=== PATIENT | male | born 1970 | race Asian ===

== ENCOUNTER 2017-11-24 05:37 | Day surgery (SDC) | payer OTHER, SELFPAY ==
[2017-11-16 13:55] VITALS: BMI 30.7
[2017-11-24] VITALS (16 sets, daily range): BP systolic 101–134; BP diastolic 58–79; PULSE 71–98; RESP 9–17; TEMP 35.9–36.8; O2SAT 92–100; BMI 31.1
--- NOTE | 2017-11-24 | DI.RAD.S_ITS ---
PROCEDURE: XR KNEE RT 1TO2V INDICATIONS: ACL repair TECHNIQUE: 2 views of the knee were acquired. COMPARISON: None. FINDINGS: Bones: No fractures or dislocations. No suspicious bony lesions. Postsurgical changes related to ACL reconstruction. Hardware appears intact. There is expected alignment. Straight linear lucencies projecting the upper pole of patella and at the tibial tuberosity, postsurgical change Soft tissues: Joint effusion and postoperative soft tissue changes. IMPRESSION: Status post ACL reconstruction. Dictated by: Calvin Evans M.D. on 11/24/2017 at 13:55 Approved by: Calvin Evans M.D. on 11/24/2017 at 13:57
--- NOTE | 2017-11-24 07:24 | PM.PREOP ---
Pre-operative Note Interval Note Pre-op Check: Yes History & Physical Reviewed by Physician and Yes Exam Performed Changes: No
[2017-11-24] MEDS: LACTATED RINGERS 1,000 ML 42 ML IV ×2 (08:00→11:54)
[2017-11-24] MEDS: CEFAZOLIN 2 GM/100 ML FROZ.PIGGY IV (08:01)
--- NOTE | 2017-11-24 08:41 | SUR.OPER ---
Supine on padded OR bed, head on pillow, arms secured on padded arm boards at <90 degrees abduction, safety belt at waist, tape over blanket over lower left leg, right leg drapped free, lateral leg post right thigh.
[2017-11-24] MEDS: SODIUM CHLORIDE IRRIG SOLUTION 3,000 ML, EPINEPHrine 1 MG IRR (09:14)
[2017-11-24] MEDS: BUPIVACAINE 0.25% (PF) VIAL 30 ML INJ (09:14)
--- NOTE | 2017-11-24 12:44 | PM.OP.1 ---
Operative Date/Time/Diagnoses Date of procedure: 11/24/17 Time of procedure: 08:30 Pre-op diagnosis: Right knee ACL tear Right knee lateral meniscus root tear Right knee medial meniscus tear Post-op diagnosis: same Procedure & Clinicians Procedure: Right knee ACL reconstruction with patellar tendon autograft Right knee lateral meniscus root repair Right knee medial meniscus debridement Right knee medial femoral condyle chondroplasty Same procedure as scheduled: Yes Indications: 47-year-old male who sustained a right knee injury in July when he fell off a bale of hay. He had popped and instability at that time. He continued to have pain and instability with daily activities and is unable perform athletic activities at his desired level. Physical exam and imaging were consistent with the ACL tear and a lateral meniscus root tear. He also had a medial meniscus tear. There was no significant degenerative change seen on MRI. Risks, benefits, alternatives to surgery were discussed with the patient. Risks include pain, bleeding, infection, lack of symptom relief, implant complications, damage to nearby structures, cartilage damage, need for further surgeries, patella fracture, nonhealing of meniscus, DVT, PE, anesthetic complications. He signed a written consent form. Surgeon: Brannon Valdez Clothes Separator: Gurpreet Siddiqui Click Yes if Unassisted: No Anesthesia Type: General and Local Operative Notes Findings: Examination under anesthesia: Range of motion is 0-135 degrees. Stable to varus and valgus stressing at 0 and 30?. 2b Soumya's. Abnormal pivot shift. Negative posterior drawer. Negative dial at 30 and 90? Diagnostic arthroscopy: Patellofemoral joint showed grade 1 softening with focal grade 2 changes. Medial and lateral gutters were without loose bodies. The medial hemijoint showed a complex displaced and retracted medial meniscus tear involving all but the last few mm of the peripheral meniscus. The root piece had retracted and was in the posterior knee and the body piece had also retracted. These were debrided. The medial femoral condyle had a small focal fissure that was full thickness and the unstable edge was debrided. The medial tibial plateau had grade 1 softening. The notch showed a torn ACL. PCL was intact when probed. The lateral hemijoint showed grade 1 softening of the lateral femoral condyle and lateral tibial plateau. The lateral meniscus itself was intact but the root was completely torn. It was retracted somewhat posteriorly. He was reduced and fixed in place. Closure Type: primary Specimen(s): none sent Implants & Drains: Arthrex BTB tight rope Arthrex 9 x 25 mm tibial screw Arthrex SwiveLock Estimated Blood Loss (mL): 50 Tourniquet time (min): 125 Procedure in detail: The patient was met in the preoperative hold area the day of the procedure. The operative extremity signed. Consent was verified. He desired to proceed. He was brought to the operating room and surrendered to anesthesia. Once general anesthesia been obtained was placed in supine position all bony prominences well padded. Examination under anesthesia was performed and the findings can be found above. He was then prepped and draped in standard sterile fashion. Surgical time-out was held to confirm the patient procedure, identity, allergies, images, antibiotics. All were in agreement we proceeded An Esmarch was used to exsanguinate the limb and the tourniquet was elevated 250 mm of mercury. An incision was made just medial to midline from the inferior pole of the patella to the tibial tubercle. Sharp dissection was brought down to the paratenon and it was clear from overlying tissue. The paratenon was then split midline and cleared from the underlying tendon. I then measured the width of the tendon it was 33 mm. I marked out the central 10 mm and made full-thickness cut through the tendon from the inferior pole of the patella down to the tibial tubercle. I then measured at 25 mm on the patella side and 35 mm on the tibial side and outlined the bone block with the Bovie electrocautery. I then drilled 1 cm deep at the corners with a 2 0 drill bit. A sagittal saw was removed a triangular bone blocks from the patella and a trapezoidal bone block from the tibia. These were both delivered from the wound with a curved osteotome. I then took the graft to the back table and prepped it. The femoral bone block measured 23 mm by 9.5 and the tibial bone block measured 35 mm by 9.5. The excess bone was saved for later grafting. One hole was drilled into the femoral side and 2 and the tibial side. Through that incision I created a lateral arthroscopy portal and performed a diagnostic arthroscopy. The medial arthroscopy portal was created through the same incision and under direct visualization. Findings the diagnostic arthroscopy can be found above. I then proceeded to debride the medial meniscus with a combination of biters and sucker shaver. For the posterior horn fragment that was unstable I worked through the notch to debrided down to a stable base. I took final pictures of the medial meniscus debridement. I then took the sucker shaver and debrided the small cartilage defect on the medial femoral condyle back to stable base. I then transitioned to preparations for the ACL reconstruction and I debrided the notch of all remnant ACL tissue with a sucker shaver and a radiofrequency ablation Wand. I ensured to free the lateral wall the way to 12 o'clock in back and had excellent visualization. I then proceeded with the lateral meniscus root repair. A passport device was placed in the medial portal site. I used a sucker shaver to debride unstable portions from the lateral root. I then freed up the lateral root from the adhesions had formed with the capsule. I then identified the anatomic insertion just lateral to the PCL and off the articular margin. I used the Arthrex 6 mm flip cutter and placed it into the anatomic insertion site and started on the medial side of the tibia ensuring to stay out of the propose track of the ACL tunnel. I then flipped it and drilled back 5 mm into bone. I then utilized a curved curette and created a trough leading up to the tunnel taking all of the cartilage and fibrous tissue from the 1 cm adjacent to the tunnel in the course of the meniscus. The I also used a sucker shaver to debride the unstable cartilage pieces and then placed into a bur mode to bur the bone back in those locations to a bleeding bed. I then placed 2 0 fiber link sutures in a luggage tag fashion at the meniscal root with good separation and just off of the edge of the root tear. I used a knot pusher to get all the creep out of the system. I then passed the sutures through the tunnel using the passport to ensure there were no soft tissue bridges. I pulled on the sutures and noted the root was stable and well reduced. I took a picture inside the joint of the meniscus was pleased with the reduction. I placed a snap on these 2 sutures I then proceeded with ACL reconstruction and started by drilling the tibial tunnel. A pin was placed in the desired position 7 mm anterior to the PCL in line with the posterior aspect of the anterior horn lateral meniscus and on the lateral aspect of the medial tibial spine. I straighten the knee to ensure that there would be no notch impingement. The pin was then grabbed with a Gayle and overdrilled with a 10 mm drill. I then placed a fiber stick through this drill hole grasped it and placed it into the proposed femoral tunnel location. I clamped it and then at the anterior tibial cortex and measured the length of the tibial tunnel plus the intra-articular length. I used this to calculate a desired femoral tunnel of 33 mm to leave me with no graft tunnel mismatch. I then placed the femoral guide and set it to 120?. I marked location on the lateral thigh and made a 3 cm incision through the ITB band in line with its fibers. I then brought the bullet down through this incision under direct visualization and down to the wall. The femur then measured 42 mm and I planned on the 33 mm femoral tunnel. I then drilled the flip cutter into the joint flipped it and scored the lateral wall. The position was excellent and I had a 2 mm posterior wall and 2 mm off the distal articular surface. I then drilled my 33 mm femoral tunnel and removed the flip cutter from the joint. The fiber stick was then placed down into the joint and into the tibial tunnel. I then went to the back table and placed the necessary sutures on the tibial side of the graft and the BTB tight rope on the femoral side. I then brought the graft to the operative table passed the sutures with the button out the lateral skin. I grasped the bone block while in the notch and directed in line with the femoral tunnel and it passed nicely. I probed the aperture extensively ensured that there was no bone at that location. With tension on those sutures and then brought the button down to the lateral wall and tightened the the tight rope completely. I felt the button directly on the lateral wall. I then tied 6 half hitches alternating post over this. I then brought the leg onto the table placed a large bump under the distal thigh. Full tension was pulled on the tibial portion of the graft and a posterior drawer was placed. A Nitinol wire was placed and a 9 mm x 25 mm tibial screw was applied. The screw had excellent purchase in the graft. There was approximately 3 mm of excess tibial bone block that was trimmed off of the anterior tibial cortex with a rongeur. Soumya's 1A and pivot shift had been restored. I then pulled full tension on the root repair sutures he gave me a similar feel as though when I previously and had wall staring at. Using the camera I was unable to view it however since the ACL had been reconstructed. I was able to look in the joint and the lateral meniscus appeared to have a similar position as when I pulled on it previously. With full tension pulled I then drilled for the SwiveLock and placed a SwiveLock. Excellent purchase was obtained and the visible portion of the sutures were tight. I then irrigated all wounds copiously and I placed the excess bone autograft into the patella followed by demineralized bone matrix. I then placed demineralized bone matrix into the tibial defect as well. The paratenon was then closed with 0 Vicryl the deep tissues were closed with 2 O Vicryl the dermis was closed with 2 O Vicryl and the skin with a running Monocryl. The ITB band was closed laterally with 0 Vicryl with the dermis closed with 2 O Vicryl and running Monocryl in the skin laterally. 25 cc of 0.25% Marcaine plain were instilled about the wound. A sterile dressing was applied. With the patient asleep in the back table sterile a flat plate was taken showing excellent position of the graft and implants. A [id number] brace was applied the patient was awakened and transferred to the recovery room. Complications: none Condition: stable Disposition: same day surgery Plan for aftercare: Nonweightbearing 6 weeks Knee locked in full extension for 2 weeks Range of motion is 0-90 degrees until 6 weeks Weight-bearing with knee locked in full extension from 6 weeks to 12 weeks. Range of motion 0-120 until 12 weeks. Do not perform deep squats below 90? until 5 months
[2017-11-24] MEDS: ONDANSETRON 4 MG/2 ML INJ IV (13:20)
[2017-11-24] MEDS: METOCLOPRAMIDE 10 MG/2 ML INJ IV (13:21)
--- NOTE | 2017-11-24 13:56 | SUR.PHASEII ---
IVF now infused. Nausea less. VSS. Still mild diaphoresis. Patient opting to remain a bit longer before discharge.
[2017-11-24] MEDS: ePHEDrine 50 MG/ML VIAL 25 MG IM (15:33)
[2017-11-24] MEDS: SCOPOLAMINE 1 PATCH TOP (15:38)
--- NOTE | 2017-11-24 15:47 | SUR.PHASEII ---
Discussed PONV with Dr Freitas and both Ephedrine & Scopolomine given. Skin no longer mosit and VS. PONV occuring with movemnt/change of position.
--- NOTE | 2017-11-24 15:56 | SUR.PHASEII ---
VSS and able to sit up voicing no nausea altho some belching seen. Will try again in five minutes and if same response will discharge home. Still comfortable as regards to pain.
[2017-11-24] MEDS: LORazepam 2 MG/ML SYRINGE 0.25 MG IV (17:33)
--- NOTE | 2017-11-24 18:45 | SUR.PHASEII ---
Discharged at 1840 after being able to do activity without nausea and the ability to mobilize independently (with crutches). Pain controlled, VSS. Given time and decision to discharge made by patient. His , Crys was extremely supportive and patient throughout the extended stay due to PONV.
== END 2017-11-24 18:40 | disposition home or self-care (01) ==
PROVIDERS: Visit Provider Orthopaedic Surgery
PROC: (CPT 29888; principal; 2017-11-24 07:45)
PROC: (CPT 29870; 2017-11-24 07:45)
DX: S83.511A Sprain of anterior cruciate ligament of right knee, initial encounter (principal); S83.281A Other tear of lateral meniscus, current injury, right knee, initial encounter; S83.241A Other tear of medial meniscus, current injury, right knee, initial encounter; W17.89XA Other fall from one level to another, initial encounter
CPT/HCPCS: 29888; 29883; 73560; J0171; J0360; J0690; J1100; J1170; J2060; J2250; J2405; J2704; J2765; J3010

== ENCOUNTER 2019-04-26 13:23 | Day surgery (SDC) | payer OTHER, SELFPAY ==
[2019-04-26] MEDS: SODIUM CHLORIDE 0.9% 1,000 ML 200 ML IV (14:30)
[2019-04-26 14:43] VITALS: BMI 30.9
[2019-04-26 14:52] VITALS: BP 126/76; PULSE 79; RESP 16; TEMP 36.6; O2SAT 100
--- NOTE | 2019-04-26 15:14 | P.HP_ITS ---
History of Present Illness History of Present Illness Date Patient Seen: 04/26/19 Time Patient Seen: 15:15 Chief complaint: [id number] Narrative: Patient presents for colorectal screening. They have never had any previous examination for such. No personal or family history of colon cancer. On further history denies any recent gastrointestinal symptoms. No nausea, vomiting, abdominal pain, loss of appetite, unexplained weight loss, change in bowel habits, diarrhea, constipation, melena, hematochezia, or bright red blood per rectum. Patient History Medical History Elevated cholesterol (Acute) Right ACL tear (Acute) Sleep apnea (Acute) Wears glasses (Acute) Wears hearing aid in right ear (Acute) Surgical History History of vasectomy (Acute) [place] teeth extracted (Acute) Family & Social History Social History: household members spouse Tobacco & Substance use: Smoking Status Never smoker alcohol intake current alcohol intake frequency a few times a month Substance Use Type does not use Meds Home Medications and Allergies Home Medications Medication Instructions Recorded Confirmed Type simvastatin 10 mg PO QPM 11/16/17 04/26/19 History fexofenadine [June Allergy] 180 mg PO DAILY 11/24/17 04/26/19 History fluticasone propionate [Flonase 1 spray INTRANASAL DAILY 11/24/17 04/26/19 History Allergy Relief] Allergies Allergy/AdvReac Type Severity Reaction Status Date / Time fentanyl AdvReac Severe Vomiting Verified 04/26/19 15:02 ondansetron [From Zofran] AdvReac Severe Dizziness Verified 04/26/19 15:04 Review of Systems Review of Systems Narrative: A 10 point review of systems is negative except as noted in the HPI Exam Vital Signs (past 8 hours): - 04/26/19 14:52 Temperature 98 F Pulse Rate 79 Respiratory Rate 16 Blood Pressure 126/76 Pulse Oximetry 100 Oxygen Delivery Method Room Air Narrative Exam Narrative: General-no acute distress, well nourished HEENT-moist mucous membranes, no scleral icterus Neck-supple, no lymphadenopathy Chest- non labored respirations, clear to auscultation bilaterally Cardiac-regular rate no peripheral edema Abdomen-soft, nontender, non distended Extremities-warm, well perfused Neurological-alert and oriented, no focal deficits Assessment & Plan Assessment and plan (1) Screening for colon cancer: Current visit: Yes Status: Acute Assessment & Plan narrative: The patient requires colorectal screening and colonoscopy is recommended. Technical details were discussed. Risks, benefits, alternatives explained. Risks including but not limited to myocardial infarction, aspiration, bleeding, pain, missed lesion, incomplete examination, need for further radiographic studies, colonic perforation, and need for major abdominal surgery were discussed. All questions were answered to their sati sfaction, and they are in agreement with this plan.
[2019-04-26] MEDS: MIDAZOLAM 5 MG/5 ML VIAL IV (15:32)
--- NOTE | 2019-04-26 15:49 | PM.OP.ENDO ---
Operative Date/Time/Diagnoses Date of procedure: 04/26/19 Time of procedure: 15:49 Pre-op diagnosis: Screening colonoscopy Post-op diagnosis: same Procedure & Clinicians Study performed: Colonoscopy Same procedure as scheduled: Yes Indications: 49-year-old man no prior colonoscopy presents for routine screening Surgeon: Michele Griggs Procedure Notes SCOAP/Timeout: Performed Procedure in detail: Patient placed in left lateral decubitus position. Time out was performed. Procedural sedation was administered with Versed and Fentanyl. A rectal exam demonstrated no external hemorrhoids no internal masses. Colonoscopy scope was placed into the rectum and advanced through the colon to the cecum. The ileocecal valve was identified. The scope was then slowly withdrawn examining colon thoroughly in all directions. The colonoscopy was notable for the following 1. No masses or polyps 2. Sigmoid diverticulosis 3. Grade 1 internal hemorrhoids 4. Quality of prep excellent Scope withdrawal time: 6 Sedation minutes: 17 Findings: diverticulosis and internal hemorrhoids Specimen(s): none sent Complications: none Impression: Diverticulosis Post-procedure Recommendations: Colonscopy in 10 years Disposition: same day surgery
[2019-04-26 15:55] VITALS: BP 100/40; BP 116/63; PULSE 86; PULSE 90; RESP 11; TEMP 36.3; O2SAT 92; O2SAT 95
[2019-04-26 15:58] VITALS: BP 102/60; PULSE 83; RESP 19; O2SAT 95
[2019-04-26 16:03] VITALS: BP 101/59; PULSE 83; RESP 19; O2SAT 94
--- NOTE | 2019-04-26 16:05 | SUR.PHASEI ---
Report given to Jennifer
[2019-04-26 16:09] VITALS: BP 104/68; PULSE 82; RESP 11; O2SAT 100
[2019-04-26 16:31] VITALS: BP 112/79; PULSE 86; RESP 16; TEMP 36.1; O2SAT 95
== END 2019-04-26 16:50 | disposition home or self-care (01) ==
PROVIDERS: Visit Provider Surgery
PROC: 0DJD8ZZ Inspection of Lower Intestinal Tract, Via Natural or Artificial Opening Endoscopic (ICD-10-PCS; CPT 45378; principal; 2019-04-26 15:15)
DX: Z12.11 Encounter for screening for malignant neoplasm of colon (principal); G47.30 Sleep apnea, unspecified; E78.00 Pure hypercholesterolemia, unspecified; K57.30 Diverticulosis of large intestine without perforation or abscess without bleeding; K64.0 First degree hemorrhoids
CPT/HCPCS: 45378; 99152; J2250; J3010

== ENCOUNTER → 2020-05-12 08:27 | Outpatient (CLI) | payer OTHER, SELFPAY ==
[2020-05-12 09:18] LABS: Hemoglobin A1C% w Est Avg Glu 5.9 % (4.0-6.0)
[2020-05-12 09:19] LABS: Alanine Aminotransferase 38 IU/L (<50); Albumin 4.5 g/dL (3.5-5.0); Albumin Globulin Ratio 1.5 (1.0-2.8); BUN Creatinine Ratio 19.3 (6-22); Bilirubin Total 0.5 mg/dL (0.2-1.3); Blood Urea Nitrogen 21 mg/dL (9-20); Carbon Dioxide 27 mmol/L (22-32); Chloride 107 mmol/L (98-107); Cholesterol 169 mg/dL (140-199); Estimated Glomerular Filt Rate > 60.0 mL/min (>60); Globulin 3.1 g/dL (1.7-4.1); Glucose 102 mg/dL (70-100); HDL Cholesterol 50 mg/dL (40-60); LDL Cholesterol Calculated 86 mg/dL (<100); Sodium 139 mmol/L (137-145); Total Protein 7.6 g/dL (6.3-8.2); Triglycerides 166 mg/dL (35-150)
[2020-05-12 09:32] LABS: Alkaline Phosphatase 55 U/L (38-126); Aspartate Aminotransferase 31 IU/L (17-59); HEMOLYSIS 60 (0-50); Potassium 4.5 mmol/L (3.4-5.1)
== END ==
PROVIDERS: PCP Family Medicine; Referring Provider Family Medicine; Visit Provider Family Medicine
DX: Z00.01 Encounter for general adult medical examination with abnormal findings (principal); E78.00 Pure hypercholesterolemia, unspecified
CPT/HCPCS: 36415; 80053; 80061; 83036

== ENCOUNTER → 2021-10-31 09:30 | Outpatient (CLI) | payer OTHER, SELFPAY ==
[2021-10-31 11:31] LABS: Alanine Aminotransferase 38 IU/L (<50); Albumin 4.8 g/dL (3.5-5.0); Albumin Globulin Ratio 1.7 (1.0-2.8); Alkaline Phosphatase 42 U/L (38-126); Aspartate Aminotransferase 41 IU/L (17-59); Bilirubin Total 1.1 mg/dL (0.2-1.3); Blood Urea Nitrogen 14 mg/dL (9-20); Carbon Dioxide 24 mmol/L (22-32); Chloride 108 mmol/L (98-107); Cholesterol 163 mg/dL (140-199); Estimated Glomerular Filt Rate > 60 mL/min (>60); Globulin 2.9 g/dL (1.7-4.1); Glucose 95 mg/dL (70-100); HDL Cholesterol 47 mg/dL (40-60); LDL Cholesterol Calculated 74 mg/dL (<100); Sodium 140 mmol/L (137-145); Total Protein 7.7 g/dL (6.3-8.2); Triglycerides 208 mg/dL (35-150)
[2021-10-31 11:35] LABS: Hemoglobin A1C% w Est Avg Glu 5.9 % (4.0-6.0)
[2021-10-31 11:55] LABS: HEMOLYSIS 163 (0-50)
== END ==
PROVIDERS: PCP Family Medicine; Referring Provider Family Medicine; Visit Provider Family Medicine
DX: E78.00 Pure hypercholesterolemia, unspecified (principal); G47.33 Obstructive sleep apnea (adult) (pediatric); Z00.01 Encounter for general adult medical examination with abnormal findings
CPT/HCPCS: 36415; 80053; 80061; 83036

== ENCOUNTER → 2022-09-24 07:57 | Outpatient (CLI) | payer BC, OTHER, SELFPAY ==
[2022-09-24 09:11] LABS: Add Manual Diff / Slide Review NO; Basophils Absolute Auto 0 /uL (0-100); Basophils Percent Auto 0.7 % (0-2); Eosinophils Absolute Auto 300 /uL (0-450); Eosinophils Percent Auto 5.7 % (2-4); Hematocrit 43.9 % (41-53); Hemoglobin 14.9 g/dL (13.5-17.5); Lymphocytes Absolute Auto 1800 /uL (1100-4500); Lymphocytes Percent Auto 30.6 % (25-40); Mean Corpuscular HGB Conc 33.8 % (30-36); Mean Corpuscular Hemoglobin 29.7 PG (26-34); Mean Corpuscular Volume 87.9 fL (80-100); Monocytes Absolute Auto 400 /uL (0-900); Monocytes Percent Auto 7.6 % (3-14); Neutrophils Absolute Auto 3200 /uL (1500-7000); Neutrophils Percent Auto 55.4 % (50-75); Platelet Count 220 X10^3/uL (150-400); Red Cell Distribution Width 13.8 % (11.6-14.8); White Blood Cell Count 5.8 X10^3/uL (4.5-11.0)
[2022-09-24 09:30] LABS: Alanine Aminotransferase 52 IU/L (<50); Albumin 4.5 g/dL (3.5-5.0); Albumin Globulin Ratio 1.7 (1.0-2.8); Alkaline Phosphatase 64 U/L (38-126); Aspartate Aminotransferase 32 IU/L (17-59); BUN Creatinine Ratio 15.3 (6-22); Bilirubin Total 0.5 mg/dL (0.2-1.3); Blood Urea Nitrogen 18 mg/dL (9-20); Carbon Dioxide 28 mmol/L (22-32); Chloride 105 mmol/L (98-107); Cholesterol 173 mg/dL (140-199); Estimated Glomerular Filt Rate > 60 mL/min (>60); Globulin 2.6 g/dL (1.7-4.1); Glucose 102 mg/dL (70-100); HDL Cholesterol 51 mg/dL (40-60); HEMOLYSIS < 15 (0-50); LDL Cholesterol Calculated 76 mg/dL (<100); Potassium 4.5 mmol/L (3.4-5.1); Sodium 140 mmol/L (137-145); Total Protein 7.1 g/dL (6.3-8.2); Triglycerides 229 mg/dL (35-150)
[2022-09-24 10:01] LABS: Prostate Specific Antigen Scrn 0.603 ng/mL (0.1-4.0)
[2022-09-24 10:02] LABS: TSH w/ Reflex to FT4 2.38 uIU/mL (0.47-4.68)
[2022-09-24 10:20] LABS: Hep C Virus Ab w/Reflex Quant NEGATIVE s/c (NEGATIVE)
== END ==
PROVIDERS: PCP Family Medicine; Referring Provider Family Medicine; Visit Provider Family Medicine
DX: E78.00 Pure hypercholesterolemia, unspecified (principal); G47.30 Sleep apnea, unspecified; L30.9 Dermatitis, unspecified; M72.2 Plantar fascial fibromatosis; Z00.01 Encounter for general adult medical examination with abnormal findings; Z12.5 Encounter for screening for malignant neoplasm of prostate
CPT/HCPCS: 36415; 80053; 80061; 84443; 85025; 86803; G0103

== ENCOUNTER → 2023-10-01 08:13 | Outpatient (CLI) | payer OTHER, SELFPAY ==
[2023-10-01 09:00] LABS: Add Manual Diff / Slide Review NO; Basophils Absolute Auto 0 /uL (0-100); Basophils Percent Auto 0.6 % (0-2); Eosinophils Absolute Auto 300 /uL (0-450); Eosinophils Percent Auto 5.9 % (2-4); Hematocrit 42.5 % (41-53); Hemoglobin 14.3 g/dL (13.5-17.5); Lymphocytes Absolute Auto 1400 /uL (1100-4500); Mean Corpuscular HGB Conc 33.6 % (30-36); Mean Corpuscular Hemoglobin 29.8 PG (26-34); Mean Corpuscular Volume 88.8 fL (80-100); Monocytes Absolute Auto 400 /uL (0-900); Monocytes Percent Auto 6.6 % (3-14); Neutrophils Absolute Auto 3700 /uL (1500-7000); Neutrophils Percent Auto 62.9 % (50-75); Platelet Count 219 X10^3/uL (150-400); Red Blood Cell Count 4.79 X10^6/uL (4.5-5.9); Red Cell Distribution Width 13.9 % (11.6-14.8); White Blood Cell Count 5.8 X10^3/uL (4.5-11.0)
[2023-10-01 09:07] LABS: Hemoglobin A1C% w Est Avg Glu 5.9 % (4.0-6.0)
[2023-10-01 09:17] LABS: Alanine Aminotransferase 41 IU/L (<50); Albumin 4.5 g/dL (3.5-5.0); Albumin Globulin Ratio 1.9 (1.0-2.8); Alkaline Phosphatase 58 U/L (38-126); Aspartate Aminotransferase 35 IU/L (17-59); BUN Creatinine Ratio 19.2 (6-22); Bilirubin Total 0.9 mg/dL (0.2-1.3); Blood Urea Nitrogen 19 mg/dL (9-20); Calcium 9.2 mg/dL (8.4-10.2); Carbon Dioxide 25 mmol/L (22-32); Chloride 109 mmol/L (98-107); Cholesterol 156 mg/dL (140-199); Estimated Glomerular Filt Rate > 60 mL/min (>60); Globulin 2.4 g/dL (1.7-4.1); Glucose 111 mg/dL (70-100); HDL Cholesterol 48 mg/dL (40-60); HEMOLYSIS < 15 (0-50); LDL Cholesterol Calculated 69 mg/dL (<100); Potassium 4.2 mmol/L (3.4-5.1); Sodium 140 mmol/L (137-145); Total Protein 6.9 g/dL (6.3-8.2); Triglycerides 197 mg/dL (35-150)
[2023-10-01 09:48] LABS: Prostate Specific Antigen Scrn 0.772 ng/mL (0.1-4.0); TSH w/ Reflex to FT4 1.25 uIU/mL (0.47-4.68)
[2023-10-02 08:39] LABS: Apolipoprotein B 74 mg/dL (<90)
[2023-10-05 03:10] LABS: Lipoprotein (a) 82.1 nmol/L (<75.0)
== END ==
PROVIDERS: PCP Family Medicine; Referring Provider Family Medicine; Visit Provider Family Medicine
DX: Z00.00 Encounter for general adult medical examination without abnormal findings (principal); R73.01 Impaired fasting glucose; Z12.5 Encounter for screening for malignant neoplasm of prostate
CPT/HCPCS: 36415; 80053; 80061; 82172; 83036; 83695; 84443; 85025; G0103

== ENCOUNTER 2023-10-20 11:30 | Emergency (ER) | payer OTHER, SELFPAY ==
[2023-10-20] VITALS (11 sets, daily range): BP systolic 104–157; BP diastolic 57–69; PULSE 70–78; RESP 14–16; TEMP 37; O2SAT 96–100; BMI 32.9
--- NOTE | 2023-10-20 12:29 | PC.NURSE ---
patient states that he suddenly got sick today at work and began vomiting. he was dizzy and laid down and that helped his nausea go away. He doesn't say that he ate anything out of the usual. He denies chest pain, SOB. He has stopped vomiting here in the ER today. Provider in room assessing the patient.
--- NOTE | 2023-10-20 12:42 | ED_ITS ---
HPI - Dizziness General Chief Complaint: Dizziness Stated Complaint: vomiting, dizziness, weakness Time Seen by Provider: 10/20/23 11:37 Mode of arrival: Family Vehicle History of Present Illness HPI Narrative: 53-year-old male presents for evaluation of dizziness and vomiting. Patient states that he was at work when all of a sudden the room began to spin and he vomited several times. He states that when he lays down he feels improved, but any time he sits upright he gets very vertiginous and nauseous. States that a similar episode happened a couple of months ago, but resolved with sleep and rest. Denies any other complaints at this time Related Data Home Medications Medication Instructions Recorded Confirmed simvastatin 10 mg tablet 10 mg PO QPM 11/16/17 10/14/23 fexofenadine 180 mg tablet 180 mg PO DAILY 11/24/17 10/14/23 (June Allergy) fluticasone propionate 50 1 spray intranasal DAILY 11/24/17 10/14/23 mcg/actuation nasal spray,suspension (Flonase Allergy Relief) Previous Rx's Medication Instructions Recorded triamcinolone acetonide 0.1 % 1 applic topical BID #30 grams 10/14/23 topical cream meclizine 25 mg tablet 25 mg PO BID-TID #30 tabs 10/20/23 promethazine 25 mg tablet 25 mg PO Q6H PRN nausea and 10/20/23 vomiting #30 tabs Allergies Allergy/AdvReac Type Severity Reaction Status Date / Time fentanyl AdvReac Severe Vomiting Verified 10/20/23 11:44 ondansetron [From Zofran] AdvReac Severe Dizziness Verified 10/20/23 11:44 Patient History Medical History Bilateral plantar fasciitis Dry skin Right ACL tear Wears hearing aid in right ear Wears glasses Sleep apnea Elevated cholesterol Surgical History History of repair of anterior cruciate ligament of right knee History of vasectomy [place] teeth extracted Family History Father Hyperlipidemia Hypertension Social History household members: spouse Smoking Status: Never smoker alcohol intake: current Smoking Status: Never smoker alcohol intake frequency: a few times a month Substance Use Type: does not use Exam Initial Vital Signs Initial Vital Signs: Vital Signs Pulse Oximetry 99 10/20/23 11:36 Const: Awake, alert, eyes closed, appears uncomfortable Cardiac: regular rate, regular rhythm RESP: unlabored, clear bilaterally, no wheezing GI: Soft, nontender, nondistended Skin: Warm, Dry, intact, no rashes Neuro: AO x3, CN II-XII grossly intact, moves all extremities, vertigo when sitting upright Course Orders Ordered: Discontinued Medications Diazepam (Diazepam 10 Mg/2 Ml Syringe) 2 mg IV NOW ONE Stop: 10/20/23 12:34 Last Admin: 10/20/23 12:49 Dose: 2 mg Documented By: SIMI Sodium Chloride (Normal Saline 0.9%) 1,000 mls @ 1,000 mls/hr IV BOLUS ONE Stop: 10/20/23 13:32 Last Infusion: 10/20/23 13:40 Dose: Infused Documented By: Admin: 10/20/23 12:48 Dose: 1,000 mls/hr Documented By: SIMI Meclizine HCl (Meclizine Hcl 12.5 Mg Tablet) 50 mg PO NOW ONE Stop: 10/20/23 15:17 Last Admin: 10/20/23 15:19 Dose: 50 mg Documented By: SIMI Metoclopramide HCl (Metoclopramide 10 Mg/2 Ml Inj) 10 mg IV NOW ONE Stop: 10/20/23 14:20 Last Admin: 10/20/23 14:24 Dose: 10 mg Documented By: SIMI Vital Signs Vital signs: Vital Signs - 8 hr 10/20/23 11:36 10/20/23 11:37 10/20/23 11:37 Temperature Pulse Rate 77 Respiratory Rate Blood Pressure 157/65 H Pulse Oximetry 99 99 Oxygen Delivery Method 10/20/23 11:38 10/20/23 12:00 10/20/23 12:30 Temperature 98.6 F Pulse Rate 74 77 77 Respiratory Rate 16 Blood Pressure 157/65 H Pulse Oximetry 99 100 99 Oxygen Delivery Method Room Air 10/20/23 12:53 10/20/23 12:53 10/20/23 13:00 Temperature Pulse Rate 70 74 Respiratory Rate Blood Pressure 117/57 L Pulse Oximetry 100 96 Oxygen Delivery Method 10/20/23 13:00 10/20/23 13:30 10/20/23 13:30 Temperature Pulse Rate 75 Respiratory Rate Blood Pressure 113/59 L 104/57 L Pulse Oximetry 98 Oxygen Delivery Method 10/20/23 14:00 10/20/23 14:00 10/20/23 14:31 Temperature Pulse Rate 75 78 Respiratory Rate Blood Pressure 116/66 109/60 Pulse Oximetry 99 99 Oxygen Delivery Method MDM - Dizziness Differential Diagnosis Differential diagnosis: Likely adverse reaction to drug, benign paroxysmal positional vertigo and orthostatic hypotension Lab Data 10/20/23 12:00 10/20/23 12:00 Labs: Lab Results 10/20/23 Range/Units 12:00 WBC 10.0 (4.5-11.0) X10^3/uL RBC 4.75 (4.5-5.9) X10^6/uL Hgb 14.3 (13.5-17.5) g/dL Hct 42.0 (41-53) % MCV 88.3 (80-100) fL MCH 30.1 (26-34) PG MCHC 34.1 (30-36) % RDW 13.9 (11.6-14.8) % Plt Count 212 (150-400) X10^3/uL Neut % (Auto) 86.1 H (50-75) % Lymph % (Auto) 9.0 L (25-40) % [place] % (Auto) 3.7 (3-14) % Eos % (Auto) 0.9 L (2-4) % Baso % (Auto) 0.3 (0-2) % Neut # (Auto) 8600 H (3623-7761) /uL Lymph # (Auto) 900 L (3816-7242) /uL [place] # (Auto) 400 (0-900) /uL Eos # (Auto) 100 (0-450) /uL Baso # (Auto) 0 (0-100) /uL Sodium 140 (137-145) mmol/L Potassium 4.2 (3.4-5.1) mmol/L Chloride 106 (98-107) mmol/L Carbon Dioxide 24 (22-32) mmol/L BUN 14 (9-20) mg/dL Creatinine 1.09 (0.66-1.25) mg/dL Estimated GFR > 60 (>60) mL/min BUN/Creatinine Ratio 12.8 (6-22) Glucose 124 H (70-100) mg/dL Calcium 9.1 (8.4-10.2) mg/dL Total Bilirubin 0.9 (0.2-1.3) mg/dL AST 41 (17-59) IU/L ALT 39 (<50) IU/L Alkaline Phosphatase 56 (38-126) U/L Total Protein 7.4 (6.3-8.2) g/dL Albumin 4.7 (3.5-5.0) g/dL Globulin 2.7 (1.7-4.1) g/dL Albumin/Globulin Ratio 1.7 (1.0-2.8) Lipase 96 (23-300) U/L Imaging Data CT scan - head: Radiologist's Impression: PROCEDURE: CT HEAD/BRAIN WO CON INDICATIONS: severe vertigo TECHNIQUE: Noncontrast 4.5 mm thick angled axial sections acquired from the foramen magnum to the vertex, with coronal and sagittal reformats. For radiation dose reduction, the following was used: automated exposure control, adjustment of mA and/or kV according to patient size. COMPARISON: None. FINDINGS: Image quality: Diagnostic. CSF spaces: Basal cisterns are patent. No extra-axial fluid collections. Ventricles are normal in size and shape. Brain: No midline shift. No intracranial masses or hemorrhage. [place]-white matter interface is normal. Skull and face: Calvarium and visualized facial bones are intact, without suspicious lesions. Sinuses: Visualized sinuses and mastoids are clear. IMPRESSION: No acute intracranial pathology. Dictated by: Wang Watson M.D. on 10/20/2023 at 15:00 Approved by: Wang Watson M.D. on 10/20/2023 at 15:00 CTA - brain/neck: Radiologist's Impression: PROCEDURE: CT ANGIO HEAD AND NECK INDICATIONS: severe vertigo TECHNIQUE: After the administration of intravenous contrast, 1 mm thick sections acquired from the aortic arch through the [place] of [place]. 3-dimensional jtxzghn-sshtoggdo-wvvsnbenbu (MIP) and/or volume rendering reformats were acquired of the central intracranial vasculature and neck separately. For radiation dose reduction, the following was used: automated exposure control, adjustment of mA and/or kV according to patient size. COMPARISON: [facility], CT, CT HEAD/BRAIN WO CON, 10/20/2023, 14:22. FINDINGS: Image quality: Diagnostic. BRAIN: CSF spaces: Ventricles are normal in size and shape. Basal cisterns are patent. No extra-axial fluid collections. Brain: No significant abnormality of the brain can be seen. Skull and face: Calvarium and facial bones appear intact, without suspicious lesions. Orbits appear normal. Sinuses: Sinuses and mastoids are clear. HEAD CT ANGIOGRAPHY: Anterior circulation: Intracranial internal carotid arteries are normal in size and flow. The flow within the paired anterior cerebral arteries is normal and symmetric. The flow within the middle cerebral arteries is normal and symmetric. The anterior communicating artery is seen. No aneurysms are seen. Posterior circulation: Visualized portions of the vertebral arteries demonstrate normal caliber, and join to form a normal appearing basilar artery. Flow within the posterior cerebral arteries is normal and symmetric. No aneurysms are seen. NECK CT ANGIOGRAPHY: Carotid system: The great vessels demonstrate a conventional anatomy as they arise from the aortic arch. The origins of the common carotid arteries appear patent. The common carotid arteries demonstrate normal caliber and courses. The bifurcation regions are both widely patent. The internal carotid arteries demonstrate normal calibers and courses. Posterior circulation: The origins of the vertebral arteries both appear widely patent. The more superior extracranial portions of both vertebral arteries also demonstrate normal courses and calibers. They join to form a normal appearing basilar artery. Soft tissues: Visualized neck soft tissues demonstrate no suspicious abnormalities. Bones: No suspicious bony lesions. Visualized cervical spine appears normally aligned. IMPRESSION: No significant intracranial arterial abnormality is seen. No significant abnormality is seen within the arteries of the neck. Any quantitative measurements of stenosis were performed using NASCET criteria. Dictated by: Wang Watson M.D. on 10/20/2023 at 14:57 Approved by: Wang Watson M.D. on 10/20/2023 at 14:59 MDM Narrative Medical decision making narrative: Sudden onset vertigo and associated nausea and vomiting. Onset and description of symptoms seems more peripheral in nature. Laboratory work, IV fluids, Valium ordered for nausea and vertigo. Laboratory work unremarkable. Patient reported feeling somewhat improved after Valium, still with some vertigo. CT and CT angio head and neck ordered for assessment. Patient reports adverse reaction to Zofran, different nausea medication ordered. Meclizine also ordered. Noncontrast CT brain and CT angio negative for acute findings. Patient reported feeling improved after meclizine. Family relieved to know of normal CT results. Meclizine and antinausea medication sent to pharmacy of choice. If patient has persistent vertigo he was referred to an ENT doctor for evaluation. PCP follow up advised. Discharge Plan Departure Patient Disposition: Home Clinical Impression: Vertigo Instructions: DI for Vertigo Activity Restrictions/Additional Instructions: your CT and CT angio imaging was normal. There do not appear to be any blockages in any of the arteries of your head and neck. Your laboratory work here today was normal as well. Meclizine has been sent to your pharmacy for vertigo, and Phenergan has been sent as well for nausea and vomiting. I recommend following up with the ear nose and throat doctor if you continue to experience vertigo symptoms, a referral has been provided below. If your symptoms worsen, are not improved with the medications provided, or if you are unable to tolerate anything by mouth please return for repeat evaluation. Prescriptions: New meclizine 25 mg tablet 25 mg PO BID-TID Qty: 30 0RF promethazine 25 mg tablet 25 mg PO Q6H PRN (Reason: nausea and vomiting) Qty: 30 0RF No Action triamcinolone acetonide 0.1 % cream 1 applic topical BID Qty: 30 0RF Rx Instructions: apply thin layer to affected area of arms twice each day for up to two weeks at a time. simvastatin 10 mg Tablet 10 mg PO QPM fexofenadine [June Allergy] 180 mg Tablet 180 mg PO DAILY fluticasone propionate [Flonase Allergy Relief] 50 mcg/actuation [place],Suspension 1 spray INTRANASAL DAILY Referrals: Marvin Isabel MD [Physician] - Maikel Palafox MD [Primary Care Provider] - Stand Alone Forms: Patient Portal/API, Work Release Note
[2023-10-20 12:45] LABS: Add Manual Diff / Slide Review NO; Basophils Absolute Auto 0 /uL (0-100); Basophils Percent Auto 0.3 % (0-2); Eosinophils Absolute Auto 100 /uL (0-450); Eosinophils Percent Auto 0.9 % (2-4); Hemoglobin 14.3 g/dL (13.5-17.5); Lymphocytes Absolute Auto 900 /uL (1100-4500); Mean Corpuscular HGB Conc 34.1 % (30-36); Mean Corpuscular Hemoglobin 30.1 PG (26-34); Mean Corpuscular Volume 88.3 fL (80-100); Monocytes Absolute Auto 400 /uL (0-900); Monocytes Percent Auto 3.7 % (3-14); Neutrophils Absolute Auto 8600 /uL (1500-7000); Neutrophils Percent Auto 86.1 % (50-75); Platelet Count 212 X10^3/uL (150-400); Red Blood Cell Count 4.75 X10^6/uL (4.5-5.9); Red Cell Distribution Width 13.9 % (11.6-14.8)
[2023-10-20] MEDS: SODIUM CHLORIDE 0.9% 1,000 ML 1000 ML IV (12:48)
[2023-10-20] MEDS: diazePAM 10 MG/2 ML SYRINGE 2 MG IV (12:49)
[2023-10-20 12:51] LABS: Alanine Aminotransferase 39 IU/L (<50); Albumin 4.7 g/dL (3.5-5.0); Albumin Globulin Ratio 1.7 (1.0-2.8); Alkaline Phosphatase 56 U/L (38-126); Aspartate Aminotransferase 41 IU/L (17-59); BUN Creatinine Ratio 12.8 (6-22); Bilirubin Total 0.9 mg/dL (0.2-1.3); Blood Urea Nitrogen 14 mg/dL (9-20); Calcium 9.1 mg/dL (8.4-10.2); Carbon Dioxide 24 mmol/L (22-32); Chloride 106 mmol/L (98-107); Estimated Glomerular Filt Rate > 60 mL/min (>60); Globulin 2.7 g/dL (1.7-4.1); Glucose 124 mg/dL (70-100); HEMOLYSIS 39 (0-50); Lipase 96 U/L (23-300); Potassium 4.2 mmol/L (3.4-5.1); Sodium 140 mmol/L (137-145); Total Protein 7.4 g/dL (6.3-8.2)
--- NOTE | 2023-10-20 14:16 | DI.CT.S_ITS ---
PROCEDURE: CT HEAD/BRAIN WO CON INDICATIONS: severe vertigo TECHNIQUE: Noncontrast 4.5 mm thick angled axial sections acquired from the foramen magnum to the vertex, with coronal and sagittal reformats. For radiation dose reduction, the following was used: automated exposure control, adjustment of mA and/or kV according to patient size. COMPARISON: None. FINDINGS: Image quality: Diagnostic. CSF spaces: Basal cisterns are patent. No extra-axial fluid collections. Ventricles are normal in size and shape. Brain: No midline shift. No intracranial masses or hemorrhage. [place]-white matter interface is normal. Skull and face: Calvarium and visualized facial bones are intact, without suspicious lesions. Sinuses: Visualized sinuses and mastoids are clear. IMPRESSION: No acute intracranial pathology. Dictated by: Wang Watson M.D. on 10/20/2023 at 15:00 Approved by: Wang Watson M.D. on 10/20/2023 at 15:00
--- NOTE | 2023-10-20 14:16 | DI.CT.S_ITS ---
PROCEDURE: CT ANGIO HEAD AND NECK INDICATIONS: severe vertigo TECHNIQUE: After the administration of intravenous contrast, 1 mm thick sections acquired from the aortic arch through the [place] of [place]. 3-dimensional geaobcx-mstcnccek-evuwcarwst (MIP) and/or volume rendering reformats were acquired of the central intracranial vasculature and neck separately. For radiation dose reduction, the following was used: automated exposure control, adjustment of mA and/or kV according to patient size. COMPARISON: [facility], CT, CT HEAD/BRAIN WO CON, 10/20/2023, 14:22. FINDINGS: Image quality: Diagnostic. BRAIN: CSF spaces: Ventricles are normal in size and shape. Basal cisterns are patent. No extra-axial fluid collections. Brain: No significant abnormality of the brain can be seen. Skull and face: Calvarium and facial bones appear intact, without suspicious lesions. Orbits appear normal. Sinuses: Sinuses and mastoids are clear. HEAD CT ANGIOGRAPHY: Anterior circulation: Intracranial internal carotid arteries are normal in size and flow. The flow within the paired anterior cerebral arteries is normal and symmetric. The flow within the middle cerebral arteries is normal and symmetric. The anterior communicating artery is seen. No aneurysms are seen. Posterior circulation: Visualized portions of the vertebral arteries demonstrate normal caliber, and join to form a normal appearing basilar artery. Flow within the posterior cerebral arteries is normal and symmetric. No aneurysms are seen. NECK CT ANGIOGRAPHY: Carotid system: The great vessels demonstrate a conventional anatomy as they arise from the aortic arch. The origins of the common carotid arteries appear patent. The common carotid arteries demonstrate normal caliber and courses. The bifurcation regions are both widely patent. The internal carotid arteries demonstrate normal calibers and courses. Posterior circulation: The origins of the vertebral arteries both appear widely patent. The more superior extracranial portions of both vertebral arteries also demonstrate normal courses and calibers. They join to form a normal appearing basilar artery. Soft tissues: Visualized neck soft tissues demonstrate no suspicious abnormalities. Bones: No suspicious bony lesions. Visualized cervical spine appears normally aligned. IMPRESSION: No significant intracranial arterial abnormality is seen. No significant abnormality is seen within the arteries of the neck. Any quantitative measurements of stenosis were performed using NASCET criteria. Dictated by: Wang Watson M.D. on 10/20/2023 at 14:57 Approved by: Wang Watson M.D. on 10/20/2023 at 14:59
[2023-10-20] MEDS: METOCLOPRAMIDE 10 MG/2 ML INJ IV (14:24)
[2023-10-20] MEDS: MECLIZINE HCL 12.5 MG TABLET 50 MG PO (15:19)
--- NOTE | 2023-10-20 16:34 | PC.NURSE ---
patient ambulated to the restroom. He is still slightly dizzy but able to ambulated without nausea and vomiting.
== END 2023-10-20 17:04 | disposition home or self-care (01) ==
PROVIDERS: Emergency Provider Emergency Medicine; PCP Family Medicine
DX: R42 Dizziness and giddiness (principal); R11.2 Nausea with vomiting, unspecified
CPT/HCPCS: 36415; 70450; 70496; 70498; 80053; 83690; 85025; 96361; 96374; 96375; 99284; J2765; J3360; Q9967

== ENCOUNTER → 2023-10-22 07:54 | Outpatient (CLI) | payer OTHER, SELFPAY ==
[2023-10-25 17:08] LABS: Deamidated Gliadin Ab IgA 3 units (0-19); Deamidated Gliadin Ab IgG 2 units (0-19); Immunoglobulin A,Qn 150 mg/dL (90-386); t-Transglutaminase IgA <2 U/mL (0-3)
[2023-10-28 22:36] LABS: Percent Free Testosterone 2.33 % (1.50-4.20); Testosterone Free 9.33 ng/dL (5.00-21.00); Testosterone Total 400.5 ng/dL (264.0-916.0)
== END ==
PROVIDERS: PCP Family Medicine; Referring Provider Family Medicine; Visit Provider Family Medicine
DX: R68.82 Decreased libido (principal); R53.83 Other fatigue; K90.41 Non-celiac gluten sensitivity
CPT/HCPCS: 36415; 82784; 83516; 84402; 84403

== ENCOUNTER → 2024-02-27 15:18 | Outpatient (CLI) | payer OTHER, SELFPAY ==
--- NOTE | 2024-02-27 15:19 | DI.MRI.S_ITS ---
PROCEDURE: MR BRAIN (IAC) WWO CON INDICATIONS: RECURRENT VERTIGO, HEARING LOSS TECHNIQUE: Noncontrast sagittal T1 spin echo, axial FLAIR, axial gradient echo, axial diffusion and ADC through the brain. Axial thin-slice 3D CISS, coronal TruFISP, axial T1 spin echo with fat saturation through the internal auditory canals. After the administration of contrast, thin slice axial and coronal T1 spin echo with fat saturation through the internal auditory canals, and axial and coronal and sagittal T1 spin echo with fat saturation through the brain. COMPARISON: [facility], CT, CT HEAD/BRAIN WO CON, 10/20/2023, 14:22. [facility], CT, CT ANGIO HEAD AND NECK, 10/20/2023, 14:22. FINDINGS: Image quality: Excellent. Cerebellopontine angles: No cerebellopontine angle masses. Inner ear structures appear normally formed. No suspicious enhancement in the internal auditory canal or along the course of the 7th cranial nerve. CSF spaces: Ventricles are normal in size and shape. No extra-axial fluid collections. Basal cisterns are patent. Brain: No intracranial bleeds or mass effects. [place]-white matter interface is intact. No abnormal intracranial enhancement. Diffusion weighted images demonstrate no acute ischemic insults. Brainstem appears normal. Normal intravascular flow voids are present. Skull and face: Calvarial marrow signal is normal. Orbits appear normal. Sinuses: Sinuses and mastoids are clear. IMPRESSION: No significant abnormality is seen. Specifically, no masses or abnormal enhancement are seen within the cerebellopontine angle cisterns or within the internal auditory canals. Dictated by: Josafat Russell M.D. on 02/27/2024 at 16:08 Approved by: Josafat Russell M.D. on 02/27/2024 at 16:10
== END ==
PROVIDERS: PCP Family Medicine; Referring Provider Otolaryngology; Visit Provider Otolaryngology
DX: H90.41 Sensorineural hearing loss, unilateral, right ear, with unrestricted hearing on the contralateral side (principal); R42 Dizziness and giddiness
CPT/HCPCS: 70553; A9579

== ENCOUNTER → 2024-10-09 08:09 | Outpatient (CLI) | payer OTHER, SELFPAY ==
[2024-10-09 08:59] LABS: Hematocrit 46.6 % (41-53); Hemoglobin 15.6 g/dL (13.5-17.5); Mean Corpuscular HGB Conc 33.6 % (30-36); Mean Corpuscular Hemoglobin 29.6 PG (26-34); Mean Corpuscular Volume 88.3 fL (80-100); Platelet Count 215 X10^3/uL (150-400)
[2024-10-09 09:28] LABS: Alanine Aminotransferase 46 IU/L (<50); Albumin 4.7 g/dL (3.5-5.0); Albumin Globulin Ratio 1.8 (1.0-2.8); Alkaline Phosphatase 61 U/L (38-126); Blood Urea Nitrogen 16 mg/dL (9-20); Calcium 9.5 mg/dL (8.4-10.2); Carbon Dioxide 25 mmol/L (22-32); Chloride 105 mmol/L (98-107); Cholesterol 180 mg/dL (140-199); Estimated Glomerular Filt Rate > 60 mL/min (>60); Globulin 2.6 g/dL (1.7-4.1); Glucose 104 mg/dL (70-99); HDL Cholesterol 44 mg/dL (40-60); HEMOLYSIS < 15 (0-50); Potassium 4.6 mmol/L (3.4-5.1); Sodium 138 mmol/L (137-145); Total Protein 7.3 g/dL (6.3-8.2); Triglycerides 268 mg/dL (35-150)
== END ==
PROVIDERS: PCP Family Medicine; Referring Provider Family Medicine; Visit Provider Family Medicine
DX: Z12.5 Encounter for screening for malignant neoplasm of prostate (principal); E78.00 Pure hypercholesterolemia, unspecified; G47.33 Obstructive sleep apnea (adult) (pediatric); Z79.899 Other long term (current) drug therapy
CPT/HCPCS: 36415; 80053; 80061; 85027; G0103